=== PATIENT | female | born 1980 | race Asian ===

== ENCOUNTER 2016-08-31 11:03 | Emergency (ER) | payer OTHER ==
[2016-08-31 11:07] VITALS: BP 152/77; PULSE 67; TEMP 97.5; BMI 27.1
[2016-08-31] MEDS ORDERED: CYCLOBENZAPRINE HCL 10 MG TABLET (FP) PO ONE (11:30)
[2016-08-31] MEDS ORDERED: KETOROLAC TROMETHAMINE 60 MG/2 ML VIAL IM ONE (11:30)
[2016-08-31] MEDS ORDERED: KETOROLAC TROMETHAMINE 60 MG/2 ML VIAL ONE (11:33)
[2016-08-31] MEDS ORDERED: CYCLOBENZAPRINE HCL 10 MG TABLET (FP) ONE (11:33)
--- NOTE | 2016-08-31 11:37 | PDOC ---
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 States woke up this morning and had significant tenderness and pain with some radiating pain to her gluteus area. Took Tylenol with minimal resolved. Denies numbness or tingling to foot, denies any problems with bowel or bladder. Occurred: reports: yesterday Severity: reports: mild, moderate Pain Location: reports: back Loss of Consciousness: no loss of consciousness Associated Symptoms (Fall): denies symptoms Past History - Travel Traveled outside of the country in the last 30 days: No Close contact w/someone who was outside of country & ill: No - Past Medical History Allergies/Adverse Reactions: Allergies Allergy/AdvReac Type Severity Reaction Status Date / Time No Known Allergies Allergy Verified 08/31/16 11:07 Home Medications: Ambulatory Orders Cyclobenzaprine HCl [Flexeril 10 mg] 10 mg PO BID PRN #14 tablet 08/31/16 NK [No Known Home Medication] 08/31/16 Other medical history: NONE - Psycho/Social/Smoking Cessation Hx Anxiety: No Suicidal Ideation: No Smoking Status: No Smoking History: Never smoked Number of Cigarettes Smoked Daily: 0 Hx Alcohol Use: Yes (SOCIAL) Drug/Substance Use Hx: No Substance Use Type: None Review of Systems - Review of Systems Able to Perform ROS?: Yes Is the patient limited [place] proficient: Yes Constitutional: Yes: See HPI. No: Symptoms Reported, Fever, Malaise HEENTM: No: Symptoms Reported Respiratory: No: Symptoms reported Musculoskeletal: Yes: Symptoms Reported, See HPI Integumentary: No: Symptoms Reported Neurological: Yes: See HPI. No: Symptoms reported All Other Systems: Reviewed and Negative *Physical Exam - Vital Signs Last Vital Signs Temp Pulse Resp BP Pulse Ox 97.5 F L 67 20 152/77 100 08/31/16 11:04 08/31/16 11:04 08/31/16 11:04 08/31/16 11:04 08/31/16 11:04 - Physical Exam General Appearance: Yes: Nourished, Appropriately Dressed, Apparent Distress HEENT: positive: MACI, Normal ENT Inspection, TMs Normal, Pharynx Normal Neck: positive: Supple Respiratory/Chest: positive: Lungs Clear, Normal Breath Sounds Musculoskeletal: positive: Normal Inspection, Muscle Spasm (tenderness and tightness noted in the paravertebral spinous muscles, worse on the left than the right, range of motion is limited secondary to this reproduce pain with flexion at 45. No true bony tenderness). negative: CVA Tenderness (L), Vertebral Tenderness Extremity: positive: Normal Capillary Refill, Normal Range of Motion Integumentary: positive: Normal Color, Dry, Warm Neurologic: positive: application systems engineer II-XII NML intact, Fully Oriented, Alert, Normal Mood/ Affect, Normal Response, Motor Strength /5 Progress Note - Progress Note Progress Note: Back strain, will treat with NSAIDs and cyclobenzaprine *DC/Admit/Observation/Transfer Diagnosis at time of Disposition: Low back sprain Qualifiers: Encounter type: initial encounter Qualified Code(s): S33.9XXA - Sprain of unspecified parts of lumbar spine and pelvis, initial encounter - Discharge Dispostion Disposition: HOME Condition at time of disposition: Stable Admit: No - Prescriptions Prescriptions: Cyclobenzaprine HCl [Flexeril 10 mg] 10 mg PO BID PRN #14 tablet PRN Reason: spasm - Referrals Referrals: Sheba Ayers [Primary Care Provider] - - Patient Instructions Printed Discharge Instructions: DI for Low Back Pain Additional Instructions: Rest, no heavy lifting or exercise until pain is resolved Hot soaks to neck and low back as often as possible/hot showers or Jacuzzis No massage or therapy until spasm is gone Continue ibuprofen 2-200 mg tablets every 6 hours for the next 3 days then as needed for pain and swelling Cyclobenzaprine 1-10mg every 8 hours as needed for spasm If not significant improvement within 24 hours with medication and rest regime, followup with private physician for change in medications and /or therapy. - Post Discharge Activity Work/School Note: Back to Work
== END 2016-08-31 11:47 | disposition home or self-care (01) ==
LOC: JERFT 11:03
PROC: 3E0233Z Introduction of Anti-inflammatory into Muscle, Percutaneous Approach (ICD-10-PCS; principal; 2016-08-31)
DX: S33.9XXA Sprain of unspecified parts of lumbar spine and pelvis, initial encounter (principal)
CPT/HCPCS: 99281-25

== ENCOUNTER 2017-09-03 08:11 | Emergency (ER) | payer OTHER ==
[2017-09-03 08:19] VITALS: BP 130/74; PULSE 68; TEMP 98; BMI 27.4
--- NOTE | 2017-09-03 08:43 | PDOC ---
History of Present Illness - General Chief Complaint: Injury Stated Complaint: FALL, HEADACHE Time Seen by Provider: 09/03/17 08:34 History Source: Patient - History of Present Illness Occurred: reports: yesterday Severity: reports: mild Pain Location: reports: head, neck Method of Injury: Yes: fall Past History - Past Medical History Allergies/Adverse Reactions: Allergies Allergy/AdvReac Type Severity Reaction Status Date / Time No Known Allergies Allergy Verified 09/03/17 08:19 Home Medications: Ambulatory Orders NK [No Known Home Medication] 09/03/17 - Suicide/Smoking/Psychosocial Hx Smoking Status: No Smoking History: Unknown if ever smoked Have you smoked in the past 12 months: No Number of Cigarettes Smoked Daily: 0 Information on smoking cessation initiated: No Hx Alcohol Use: No Drug/Substance Use Hx: No Substance Use Type: None Review of Systems - Review of Systems ABD/GI: No: Nausea, Vomiting Musculoskeletal: No: Joint Pain, Joint Swelling Integumentary: Yes: Bruising Neurological: Yes: Headache. No: Dizziness *Physical Exam - Vital Signs Last Vital Signs Temp Pulse Resp BP Pulse Ox 98.0 F 68 16 130/74 100 09/03/17 08:17 09/03/17 08:17 09/03/17 08:17 09/03/17 08:17 09/03/17 08:17 - Physical Exam General Appearance: Yes: Appropriately Dressed. No: Apparent Distress HEENT: positive: Normal Voice, Other (multiple abrasion to face, no facial swelling/de) Neck: positive: Tender (to R side on neck, no cspine ttp, FROMI), Supple Musculoskeletal: positive: Other (abrasion to volar aspect of R wrist, no swelling or deformity, FROMI, no ttp to snuffbox) Integumentary: positive: Dry, Warm Neurologic: positive: Fully Oriented, Alert, Normal Mood/Affect Medical Decision Making - Medical Decision Making 09/03/17 08:43 37 yo F, no sig hx, here w/ facial abrasions and headache s/p fall last yesterday. States she tripped and fell at home using R arm to break fall. C/o occipital MARQUEZ radiating into neck and bruising to R wrist. Denies LOC, dizziness , visual changes, n/v. Taking tylenol w/ minimal relief. See exam Minor injuries s/p fall yesterday No e/o serious injuries on exam -dc w/ otc meds for pain as needed -tetanus UTD *DC/Admit/Observation/Transfer Diagnosis at time of Disposition: Multiple abrasions Headache Qualifiers: Headache type: unspecified Headache chronicity pattern: acute headache Intractability: not intractable Qualified Code(s): R51 - Headache - Discharge Dispostion Disposition: HOME Condition at time of disposition: Good - Referrals - Patient Instructions Printed Discharge Instructions: DI for Abrasion Additional Instructions: Take motrin as needed for headache and if symptoms worsen as discussed in ED, return for reassessment - Post Discharge Activity
== END 2017-09-03 08:45 | disposition home or self-care (01) ==
LOC: JERFT 08:11
DX: S00.81XA Abrasion of other part of head, initial encounter (principal); S60.811A Abrasion of right wrist, initial encounter; R51 Headache; W18.39XA Other fall on same level, initial encounter; Y93.89 Activity, other specified; Y92.018 Other place in single-family (private) house as the place of occurrence of the external cause; Y99.8 Other external cause status
CPT/HCPCS: 99281-25

== ENCOUNTER 2018-03-26 09:39 | Emergency (ER) | payer OTHER ==
[2018-03-26 09:54] VITALS: BP 131/84; PULSE 77; TEMP 97.5; BMI 23.0
--- NOTE | 2018-03-26 11:03 | PDOC ---
History of Present Illness - General Chief Complaint: Pain, Acute Stated Complaint: LT KNEE PAIN Time Seen by Provider: 03/26/18 10:37 History Source: Patient Exam Limitations: No Limitations - History of Present Illness Initial Comments: 03/26/18 11:28 Admits coming to the emergency department with hopes to see Dr. Meredith, she has appointment tomorrow for evaluation of chronic left knee swelling and pain with known meniscus issues. States pain is progressively worsened with swelling to the knee. No fevers, no other recent symptoms including URI or gastric problems. 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 Occurred: reports: other Severity: reports: mild Pain Location: reports: lower extremity (left knee ) Method of Injury: Yes: unknown Modifying Factors: improves with: None Associated Symptoms (Fall): denies symptoms Past History - Travel Traveled outside of the country in the last 30 days: No Close contact w/someone who was outside of country & ill: No - Past Medical History Allergies/Adverse Reactions: Allergies Allergy/AdvReac Type Severity Reaction Status Date / Time No Known Allergies Allergy Verified 09/03/17 08:19 Home Medications: Ambulatory Orders NK [No Known Home Medication] 09/03/17 - Suicide/Smoking/Psychosocial Hx Smoking Status: No Smoking History: Never smoked Have you smoked in the past 12 months: No Number of Cigarettes Smoked Daily: 0 Information on smoking cessation initiated: No Hx Alcohol Use: No Drug/Substance Use Hx: No Substance Use Type: None Review of Systems - Review of Systems Able to Perform ROS?: Yes Is the patient limited [place] proficient: Yes Constitutional: Yes: Symptoms Reported, See HPI, Malaise. No: Fever HEENTM: Yes: See HPI. No: Symptoms Reported Musculoskeletal: Yes: Symptoms Reported, See HPI, Joint Pain (left knee), Joint Swelling Integumentary: Yes: See HPI Neurological: Yes: Symptoms reported, See HPI All Other Systems: Reviewed and Negative *Physical Exam - Vital Signs Last Vital Signs Temp Pulse Resp BP Pulse Ox 97.5 F L 77 18 131/84 96 03/26/18 09:52 03/26/18 09:52 03/26/18 09:52 03/26/18 09:52 03/26/18 09:52 - Physical Exam General Appearance: Yes: Nourished, Appropriately Dressed, Mild Distress, Moderate Distress. No: Apparent Distress HEENT: positive: MACI, Normal ENT Inspection, Normal Voice, TMs Normal, Pharynx Normal Extremity: positive: Normal Capillary Refill, Swelling (left knee is approximately 50% larger than right knee. Patella is not mobile and has tenderness with that over, has medial and lateral tenderness without crepitus or step-offs. Has posterior fossa tenderness. Range of motion is limited secondary to swelling and significant pain with that movement to approximately 90. Neurovascular intact to foot). negative: Normal Inspection, Normal Range of Motion Integumentary: positive: Warm, Pale Neurologic: positive: diamond setter II-XII NML intact, Fully Oriented, Alert, Normal Mood/ Affect, Normal Response, Motor Strength 5/5 Moderate Sedation - Procedure Monitoring Vital Signs: Procedure Monitoring Vital Signs Temperature 97.5 F L 03/26/18 09:52 Pulse Rate 77 03/26/18 09:52 Respiratory Rate 18 03/26/18 09:52 Blood Pressure 131/84 03/26/18 09:52 O2 Sat by Pulse Oximetry (%) 96 03/26/18 09:52 ED Treatment Course - LABORATORY CBC & Chemistry Diagram: 03/26/18 11:40 03/26/18 11:40 Progress Note - Progress Note Progress Note: Patient came to emergency department with hopes of being able to see Dr. Hester today home she has appointment with tomorrow. He was paged and was able to come to emergency department to evaluate patient. Has recommended surgery and will organize for this coming Monday. Preop labs, EKG and urinalysis has been organized in taken for that purpose. Madhu wrap was placed on patient's knee , and will Follow-up with Dr. Wright as planned for preop testing *DC/Admit/Observation/Transfer Diagnosis at time of Disposition: Knee pain, acute Qualifiers: Laterality: left Qualified Code(s): M25.562 - Pain in left knee - Discharge Dispostion Disposition: HOME Condition at time of disposition: Stable Decision to Admit order: No - Referrals Referrals: Sheba Ayers [Primary Care Provider] - - Patient Instructions Printed Discharge Instructions: DI for Knee Pain Additional Instructions: Rest, ice to area on and off for 15 minutes 4-6 times a day Avoid heavy lifting or exercise until pain and swelling is resolved or until further directed Keep area highly elevated to reduce swelling Use splints/Madhu wrap as directed Followup with orthopedist in one to 2 days if not improving, if significantly improved may wait one week for followup with orthopedist - Post Discharge Activity Forms/Work/School Notes: Back to Work
--- NOTE | 2018-03-26 11:38 | CONSULT ---
Consult - text type - Consultation Consultation Note: ORTHOPEDIC SURGERY CONSULTATION NOTE Department of Orthopedic Surgery HISTORY OF PRESENT ILLNESS Ms. Herrmann is a 38 year old female who presents to [facility] ER with worsening left knee pain and swelling. The orthopedic service was consulted for left knee pain and swelling. The injury occurred a few weeks ago, and she was seen in my office. 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 The patient notes significant pain and swelling with ambulation. Denies any other injuries. Denies numbness, tingling or other constitutional complaints. 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 Denies/Endorses tobacco use, drug use, alcohol abuse. The patient lives with family and uses no assistive devices at baseline. FAMILY HISTORY na REVIEW OF SYMPTOMS A twelve-point review of systems was performed and was negative except as noted in HPI. PHYSICAL EXAM Left Lower Extremity: Skin warm, dry, and intact; no lesions, rashes or ulcers noted. Muscle mass equal and symmetric to contralateral side. No atrophy noted. Large effusion noted. Tender to palpation at the lateral joint line. Nontender throughout rest of extremity. No cords or calf tenderness No significant calf/ankle edema. LROM in flexion secondary to pain. 10-70 degree range of motion. Joints otherwise stable with no pathologic laxity. EHL/ TA/GS motor intact; SILT distally; 2+ DP pulses; Cap refill brisk. Tone and reflexes normal. Active Problems Problem Status Category Onset Knee pain, acute Acute Medical Social History Smoking history Never smoked Aproximately how many 0 cigarettes per day Hx Alcohol Use No Allergies Allergy/AdvReac Type Severity Reaction Status Date / Time No Known Allergies Allergy Verified 09/03/17 08:19 Vital Signs (last) Temp Pulse Resp BP Pulse Ox 97.5 F L 77 18 131/84 96 03/26/18 09:52 03/26/18 09:52 03/26/18 09:52 03/26/18 09:52 03/26/18 09:52 Intake and Output 03/24/18 03/25/18 03/26/18 23:59 23:59 23:59 Other: Weight 130 lb Height 5 ft 3 in Body Mass Index (BMI) 23.0 Weight Measurement Method Est/Stated by Patient IMAGING I personally reviewed all radiographs, MRI, and other imaging. They demonstrate a left discoid lateral meniscus tear. ASSESSMENT AND PLAN Ms. Herrmann is a 38 year old female presenting status with significant increase in left knee pain. We have reviewed the imaging and clinical findings in detail, as well as their potential implications. She will need surgery for her left knee meniscus tear. WBAT LLE Coags Type and Screen EKG CXR UA - Rest/Ice/Elevate LLE - Plan for surgery Monday03/28/18. All questions were answered. Please have the patient follow up in my office tomorrow morning as planned. Thank you for involving our team in the care of this patient. Please call us at [phone] with questions
[2018-03-26 11:56] LABS: BASO % 0.5 % (0-2.0); EOS % 0.4 % (0-4.5); HEMATOCRIT 44.9 % (32.4-45.2); HEMOGLOBIN 15.4 GM/dL (10.7-15.3); LYMPH % 27.4 % (8-40); MCH 28.9 pg (25.7-33.7); MCHC 34.3 g/dl (32.0-36.0); MEAN CELL VOLUME 84.3 fl (80-96); MEAN PLT VOLUME 7.1 fl (7.5-11.1); MONO % 6.4 % (3.8-10.2); NEUT % 65.3 % (42.8-82.8); PLATELET COUNT 331 K/MM3 (134-434); RBC 5.33 M/mm3 (3.60-5.2); RDW 13.3 % (11.6-15.6); WHITE BLOOD COUNT 5.2 K/mm3 (4.0-10.0)
[2018-03-26 12:03] LABS: HCG,QUALITATIVE URINE Negative
[2018-03-26 12:15] LABS: URINE APPEARANCE CLEAR; URINE BILIRUBIN NEGATIVE (<2.0 mg/dL); URINE COLOR LTYELLOW; URINE GLUCOSE (UA) NEGATIVE (NEGATIVE); URINE KETONE NEGATIVE (NEGATIVE); URINE LEUK ESTERASE NEGATIVE (NEGATIVE); URINE NITRITE NEGATIVE (NEGATIVE); URINE PROTEIN NEGATIVE (NEGATIVE); URINE UROBILINOGEN NEGATIVE mg/dL (0.2-1.0)
[2018-03-26 12:18] LABS: INR 1.13 (0.83-1.09); PROTHROMBIN TIME (PATIENT) 13.4 SEC (9.7-13.0)
[2018-03-26 12:23] LABS: ALBUMIN 4.5 g/dl (3.4-5.0); ALK PHOS 125 U/L (45-117); ANION GAP 6 MMOL/L (8-16); BILIRUBIN,TOTAL 0.8 mg/dL (0.2-1); BLOOD UREA NITROGEN 5 mg/dL (7-18); CALCIUM 9.4 mg/dL (8.5-10.1); CHLORIDE 105 mmol/L (98-107); CO2 28 mmol/L (21-32); CREATININE 0.6 mg/dL (0.55-1.3); GLUCOSE,RANDOM 88 mg/dL (74-106); POTASSIUM 3.9 mmol/L (3.5-5.1); SGOT/AST 17 U/L (15-37); SGPT/ALT 23 U/L (13-61); SODIUM 138 mmol/L (136-145); TOT PROT 8.3 g/dl (6.4-8.2)
[2018-03-26 14:09] LABS: EPI CELLS RARE /HPF (FEW); URINE MUCUS RARE
--- NOTE | 2018-03-27 16:32 | EKG ---
Test Reason : Blood Pressure : / mmHG Vent. Rate : 062 BPM Atrial Rate : 062 BPM P-R Int : 144 ms QRS Dur : 082 ms QT Int : 390 ms P-R-T Axes : 066 073 051 degrees QTc Int : 395 ms NORMAL SINUS RHYTHM NORMAL ECG NO PREVIOUS ECGS AVAILABLE Confirmed by Donato Ling ([id number]) on 03/27/2018 4:31:38 PM Referred By: Confirmed By:Donato Ling
== END 2018-03-26 12:12 | disposition home or self-care (01) ==
LOC: JERFT 09:39
DX: S83.282A Other tear of lateral meniscus, current injury, left knee, initial encounter (principal); X58.XXXA Exposure to other specified factors, initial encounter; Y93.89 Activity, other specified; Y92.89 Other specified places as the place of occurrence of the external cause; Y99.8 Other external cause status
CPT/HCPCS: 36415; 80053; 81003; 81015; 84703; 85025; 85610; 86850; 86900; 86901; 93005; 93010; 99281-25

== ENCOUNTER 2018-03-28 06:22 | Day surgery (SDC) | payer OTHER ==
[2018-03-27 11:27] VITALS: BMI 23.0
[2018-03-28] MEDS ORDERED: BUPIVACAINE HCL/PF 0.5% (5MG/ML) 10 ML VIAL ONE (07:59)
[2018-03-28] MEDS ORDERED: BUPIVACAINE HCL/PF 0.25% (2.5MG/ML) 10 ML VIAL ONE (08:11)
[2018-03-28] MEDS ORDERED: PROPOFOL 20 ML ONE ×3 (11:26→11:36)
[2018-03-28] MEDS ORDERED: MIDAZOLAM HCL 2 MG/2 ML SINGLE DOSE VIAL ONE (11:26)
[2018-03-28] MEDS ORDERED: LIDOCAINE HCL/PF 2% SDV 5ML VIAL ONE (11:31)
[2018-03-28] MEDS ORDERED: ceFAZolin SODIUM 1 GM VIAL IVPB ONE (11:37)
[2018-03-28] MEDS ORDERED: DEXAMETHASONE SOD PHOSPHATE 4 MG/1 ML VIAL ONE (11:37)
[2018-03-28] MEDS ORDERED: ceFAZolin SODIUM 1 GM VIAL ONE (11:37)
[2018-03-28] MEDS ORDERED: DESFLURANE GAS 240 ML BOTTLE IH ONE (11:38)
[2018-03-28] MEDS ORDERED: KETOROLAC TROMETHAMINE 30 MG/1 ML VIAL ONE (11:57)
--- NOTE | 2018-03-28 13:09 | OPR ---
DATE OF PROCEDURE: 03/28/18 TITLE OF OPERATION: Left Knee Lateral Meniscus saucerization, partial lateral meniscectomy, chondroplasty, synovectomy, and debridement. PREOPERATIVE DIAGNOSIS: Left knee lateral discoid meniscus tear POSTOPERATIVE DIAGNOSIS: Left knee lateral discoid meniscus tear SURGEON: Alireza Meredith DO PACKAGER MACHINE: Olivier Rodriguez DO ANESTHESIA: General LMA SPECIMEN: Meniscus shavings PROSTHETIC DEVICE/IMPLANT:none COMPLICATIONS: none EBL: 5 ml INDICATIONS FOR SURGERY: Ms. Herrmann is a 38 year old female who presented in the preoperative setting with a chief complaint of left knee pain and swelling, diagnosed with a left lateral discoid meniscus tear. Based on their pre-injury level of activity , surgical treatment was discussed. The risks and benefits of surgery and anesthesia were discussed in detail including but not limited to pain, bleeding , infection, scarring, damage to vessels and nerves, failure to obtain the desired result, failure to heal, failure to return to sport and or activity. Understanding the risks and benefits, Ms. Herrmann opted to proceed with surgical management. After informed consent was obtained the patient was brought the operating room prepped draped in usual fashion sterile technique. Timeout was called. Site verification was performed and perioperative antibodies (1gm Ancef) was administered. 60cc's of normal saline was used to insufflate the knee joint. A standard anterolateral portal was made and the 4 mm 30 degree arthroscope was inserted into the knee joint without difficulty. This revealed no significant patellofemoral chondromalacia, but there was significant synovitis noted, especially in the medial aspect of the patellofemoral joint. The medial compartment showed no meniscal tearing and no chondral damage. Turning my attention the lateral compartment the patient had a large discoid meniscus that had a complex tear of the posterior horn, all the way to the midbody of the meniscus. There was mild associated chondromalacia of the lateral compartment. I performed a partial lateral meniscectomy removing the torn tissue with an arthroscopic shaver, along with a meniscal biter. I estimate that I removed approximately 70 percent of the discoid meniscus, leaving a saucerized meniscus that was stable on probing. The remaining meniscus was intact after the resection, from root to root. I turned my attention to the synovitis in the patellofemoral region, and performed a synovectomy. This completed the procedure. I closed incisions with 3-0 nylon. A sterile dressing was placed. Patient tolerated procedure well and arrived recovery in stable condition. Alireza Meredith DO Orthopedic Surgery
[2018-03-28] MEDS ORDERED: oxyCODONE HCL 5 MG TABLET PO PRN (13:17)
[2018-03-28] MEDS ORDERED: ONDANSETRON 4 MG/2 ML VIAL IVPUSH PRN (13:17)
[2018-03-28] MEDS ORDERED: LACTATED RINGERS SOLUTION 1,000 ML IV SCH (13:30)
[2018-03-28 17:04] VITALS: BP 129/73; PULSE 74; TEMP 97
--- NOTE | 2018-04-02 14:14 | PATH ---
Surgical Pathology Report Patient Name: AVINASH GRANGER Med. Rec. #: [id number] /Age/Gender: 1980 (Age: 38) / F Account: [id number] Location: [facility] SURGICAL Taken: 03/28/2018 Received: 03/29/2018 Reported: 04/02/2018 Physicians: Alireza Meredith MD Specimen(s) Received LEFT KNEE SHAVINGS Clinical History Left knee meniscus tear Final Diagnosis KNEE, LEFT, ARTHROSCOPIC SHAVINGS: FIBROSYNOVIAL TISSUE AND CARTILAGE. Electronically Signed Isabella King M.D. Gross Description Received in formalin, labeled "left knee shavings," is a 4.0 x 3.0 x 0.3 cm. aggregate of nicolas-yellow soft tissue fragments. A abrasives sales representative portion is submitted in one cassette. /03/29/201803/29/2018
== END 2018-03-28 17:00 | disposition home or self-care (01) ==
LOC: JASU-SURG 06:22
PROVIDERS: ATTEND Orthopaedic Surgery Sports Medicine
PROC: 0SBD4ZZ Excision of Left Knee Joint, Percutaneous Endoscopic Approach (ICD-10-PCS; 2018-03-28)
PROC: 0SBD4ZZ Excision of Left Knee Joint, Percutaneous Endoscopic Approach (ICD-10-PCS; principal; 2018-03-28 08:00)
DX: S83.272A Complex tear of lateral meniscus, current injury, left knee, initial encounter (principal); X58.XXXA Exposure to other specified factors, initial encounter; Y93.9 Activity, unspecified; Y92.9 Unspecified place or not applicable; Y99.9 Unspecified external cause status; M65.862 Other synovitis and tenosynovitis, left lower leg
CPT/HCPCS: 88304-TC; 94760